=== PATIENT | male | born 1995 | race Caucasian/White ===

== ENCOUNTER 2024-07-16 14:57 | Emergency (ER) | payer BC, SELFPAY ==
--- NOTE | 2024-07-16 15:05 | HMH.EDGENADL ---
Discharge Plan Disposition Patient Disposition: Home, Self-Care Condition: Good Referrals Follow up/Referrals: Provider,Referral, [Primary Care Provider] - See instructions Activity Restrictions/Add. Instructions Additional Instructions/Restrictions: Recommend follow-up with primary care provider, [id number] cold and cough medicines for symptomatic relief, utilize ibuprofen and Tylenol as needed for other symptoms. Please return to the emergency department with any worsening signs or symptoms. Clinical Impressions Clinical Impression: Upper respiratory infection Instructions Patient Instructions: DI for Acute Bronchitis Print Language Print Language: Georgian Discharge ED Provider: Kodi Archuleta General Adult HPI <SANDI Livingston - Last Filed: 07/16/24 16:42> General Chief complaint: Upper Respiratory Infection Stated complaint: chest congestion, cough, fever Time Seen by Provider: 07/16/24 15:04 Mode of Arrival: Ambulatory Source of Information: Patient Limitations: No Limitations History of Present Illness HPI narrative: 29-year-old male presents the emergency department with productive cough congestion subjective fever chills body aches, and productive for the last 5 to 6 days, patient denies any chest pain shortness of breath, denies any abdominal pain nausea vomiting constipation diarrhea no urinary type symptomatology, patient is a current everyday tobacco user (smokeless tobacco), denies any other alcohol or drug use, has no other real relevant past medical history, takes no other medications at home, has been utilizing elvx-waq-wzenyao cold flu medications for symptomatic relief which have provided some relief. Patient states he was at work today, instructed by his management to come get checked out . Triage vitals grossly unremarkable. Onset (ago): day(s) PFSH <SANDI Livingston - Last Filed: 07/16/24 16:42> [facility] Disclaimer: The information contained in this section may have been updated after the patient was seen, as this information can be updated by other users. Social History (Updated 07/16/24 @ 16:42 by SANDI Livingston) Smoking Status: Never smoker alcohol intake: never current occupational status: employed Travel in the last 8 weeks: None Have you lived/traveled outside [place] in past 30 days?: No Contact w/someone who lives/traveled outside [place] past 30 days?: No Exposure to someone with infectious disease in past 14 days?: No Do you have a fever (greater than 100.4 F or 38 C)?: No Have you tested positive for COVID-19: No Exposed to someone with COVID-19 in past 14 days?: No Do you have a sore throat?: No Do you have a cough?: No Do you have any weakness?: No Do you have any diarrhea?: No Are you experiencing any unusual bleeding?: No Do you have any muscle aches/pain?: No Do you have any abdominal pain?: No Are you experiencing loss of taste or smell?: No <SANDI Livingston - Last Filed: 07/16/24 16:42> ROS Obtained: Yes All systems reviewed & no additional complaints except as documented Physical Exam <SANDI Livingston - Last Filed: 07/16/24 16:42> General General appearance: alert and in no apparent distress Head Head exam: atraumatic and normocephalic Eye Eye exam: Present PERRL and EOMI ENT ENT exam: Present mucous membranes moist Neck Neck exam: Present normal inspection Chest Chest inspection: Present normal inspection and symmetric chest wall rise Respiratory Respiratory exam: Present normal lung sounds bilaterally and other (Lungs are clear, no Rales no rhonchi, no crackles, no wheezing of the bilateral lung valderrama, no supracostal or intercostal retractions); Absent respiratory distress, wheezes, stridor, accessory muscle use or prolonged expiratory phase Cardiovascular Cardiovascular exam: Present regular rate and normal rhythm Abdominal Exam Abdominal exam: Present soft; Absent tenderness Extremities Exam Extremities exam: Present normal inspection Neurological Exam Neurological exam: Present alert and oriented X3 Psychiatric Psychiatric exam: Present normal affect Skin Skin exam: Present warm and dry Medical Decision Making <SANDI Livingston - Last Filed: 07/16/24 16:42> Medical Records Medical records reviewed: Yes I reviewed the patient's medical records. Screening: Per USPSTF and CDC recommendations, given the prevalence of disease in our region, it is our hospital?s policy to screen for HIV and viral Hepatitis for all patients aged 18 and over and those with ongoing risk factors. Chin Inquiry Pt receiving controlled substance: No Chin was queried for this patient: No Vital Signs: 07/16/24 15:06 Temperature 98.3 F Temperature Source Oral Pulse Rate [Left] 69 Respiratory Rate 19 Blood Pressure [Left Arm] 139/82 Blood Pressure Mean [Left Arm] 101 Blood Pressure Source [Left Arm] Automatic Cuff Blood Pressure Position [Left Arm] Supine 02 Sat by Pulse Oximetry 95 Oxygen Delivery Method Room Air Lab Data Lab Results 07/16/24 15:07: SARS-CoV-2 (PCR) Not detected, Influenza A Untype (PCR) Not detected, Influenza Type B (PCR) Not detected Orders (Tests/Meds): ORDERS Category Date Time Status XR chest portable Stat Exams 07/16/24 15:25 Completed Rapid PCR Covid and Flu A/B Stat Lab 07/16/24 15:07 Completed Medical Decision Narrative: 29-year-old male presents to the emergency department with URI type symptomatology, differential diagnose include but not limited to acute URI, acute bronchitis, influenza, COVID-19, pneumonia among others. I discussed patient case with attending physician I have low suspicion for pneumonia, however will obtain chest x-ray, patient's lungs are grossly clear on exam, patient has good breath sounds bilaterally, but will still obtain chest x-ray to rule out any atypical pneumonia will obtain rapid antigen swab for COVID and flu. COVID-19 negative influenza A and B are negative I reviewed the patient's chest x-ray along with corresponding radiologic report, no acute cardiopulmonary process. I discussed the results with the patient at bedside, recommend supportive care for acute URI, patient will return to emergency with any worsening signs or symptoms, recommend [id number] cold and flu medications for symptomatic relief. <Kodi Archuleta MD - Last Filed: 07/16/24 16:44> Vital Signs: 07/16/24 15:06 Temperature 98.3 F Temperature Source Oral Pulse Rate [Left] 69 Respiratory Rate 19 Blood Pressure [Left Arm] 139/82 Blood Pressure Mean [Left Arm] 101 Blood Pressure Source [Left Arm] Automatic Cuff Blood Pressure Position [Left Arm] Supine 02 Sat by Pulse Oximetry 95 Oxygen Delivery Method Room Air Lab Data Lab Results 07/16/24 15:07: SARS-CoV-2 (PCR) Not detected, Influenza A Untype (PCR) Not detected, Influenza Type B (PCR) Not detected Orders (Tests/Meds): ORDERS Category Date Time Status XR chest portable Stat Exams 07/16/24 15:25 Completed Rapid PCR Covid and Flu A/B Stat Lab 07/16/24 15:07 Completed Medical Decision Narrative: 29-year-old male presents to the emergency department with URI type symptomatology, differential diagnose include but not limited to acute URI, acute bronchitis, influenza, COVID-19, pneumonia among others. I discussed patient case with attending physician I have low suspicion for pneumonia, however will obtain chest x-ray, patient's lungs are grossly clear on exam, patient has good breath sounds bilaterally, but will still obtain chest x-ray to rule out any atypical pneumonia will obtain rapid antigen swab for COVID and flu. COVID-19 negative influenza A and B are negative I reviewed the patient's chest x-ray along with corresponding radiologic report, no acute cardiopulmonary process. I discussed the results with the patient at bedside, recommend supportive care for acute URI, patient will return to emergency with any worsening signs or symptoms, recommend [id number] cold and flu medications for symptomatic relief. I was consulted by the HO, and we discussed the complexity of the problems being addressed. I approved the treatment and management plan for this patient's care in the emergency department, thus performing a substantive portion of the medical decision making. Kodi Archuleta MD Critical Care <SANDI Livingston - Last Filed: 07/16/24 16:42> Critical Care Time Critical Care Time: No
[2024-07-16 15:06] VITALS: BP 139/82; PULSE 69; RESP 19; TEMP 36.8; O2SAT 95; BMI 47.4
[2024-07-16 15:14] LABS: Coronavirus 19, PCR Not Detected (NotDetected); Influenza A, PCR Not Detected (NotDetected); Influenza B, PCR Not Detected (NotDetected)
--- NOTE | 2024-07-16 15:25 | XR_ITS ---
FINAL REPORT CLINICAL HISTORY: Cough and congestion. COMPARISON: None FINDINGS: The heart size is normal. The mediastinum is normal. There is no focal infiltrate or edema. There are no pleural effusions. There is no pneumothorax. There is no osseous abnormality. IMPRESSION: No acute cardiopulmonary process Reviewed, Interpreted and Dictated by Masood Momin MD Transcribed by Flores Rucker Authenticated and [facility]
[2024-07-16 16:54] VITALS: BP 130/80; PULSE 68; RESP 20; TEMP 36.8; O2SAT 96
[2024-07-16 16:55] VITALS: BP 120/88; PULSE 75; RESP 18; TEMP 36.9; O2SAT 97
== END 2024-07-16 16:57 | disposition home or self-care (01) ==
PROVIDERS: Physician Assistant; Emergency Provider Emergency Medicine
DX: R09.89 Other specified symptoms and signs involving the circulatory and respiratory systems (principal); J06.9 Acute upper respiratory infection, unspecified
CPT/HCPCS: 71045; 87636; 99283